=== PATIENT | female | born 1985 | race Hispanic/Latino ===

== ENCOUNTER 2024-04-15 07:06 | Emergency (ER) | payer SELFPAY ==
[2024-04-15 07:31] LABS: #Lymphocytes 2.2 thou/uL (1.20-3.40); #Monocytes 0.4 thou/uL (0.11-0.59); #Neutrophils 6.4 thou/uL (1.40-6.50); %Basophils 0.5 % (0.0-1.0); %Eosinophils 0.3 % (0.0-10.0); %Lymphocytes 24.2 % (21.0-51.0); %Monocytes 4.3 % (0.0-10.0); %Neutrophils 70.6 % (42.0-75.0); Hematocrit 40.2 % (36.0-47.0); Hemoglobin 13.5 g/dL (12.0-16.0); Mean Corpuscular HGB CONC 33.5 g/dL (32.0-36.0); Mean Corpuscular Hemoglobin 28.4 pg (27.0-31.0); Mean Corpuscular Volume 84.9 fl (78.0-98.0); Platelet Count 295 10x3/uL (130-400); RBC Distribution Width 11.6 % (11.5-14.5); Red Blood Cell (RBC) Count 4.74 mill/uL (4.20-5.40); White Blood Cell (WBC) Count 9.1 10x3/uL (4.8-10.8)
[2024-04-15 07:34] LABS: Bilirubin Small (Negative); Blood, Urine Large (Negative); Clarity Cloudy (Clear); Glucose, Urine (Dipstick) Negative (Negative); Ketone, Urine Trace mg/dL (Negative); Leukocyte Negative (Negative); Nitrite Negative (Negative); Protein, Urine (Dipstick) 100 mg/dL (Neg-Trace); Urobilinogen 0.2 mg/dL (Less than 2); pH, Urine 5.5 (5.0-9.0)
[2024-04-15] MEDS ORDERED: Sodium Chloride 0.9% 1,000 ML ONE (07:34)
[2024-04-15] MEDS ORDERED: Ondansetron PF 4 MG/2 ML Vial ONE (07:34)
[2024-04-15] MEDS ORDERED: Morphine 4 MG/ML VIAL ONE (07:34)
[2024-04-15] MEDS ORDERED: Ketorolac Tromethamine 30 MG (1 mL) VIAL ONE (07:36)
[2024-04-15 07:40] LABS: Specific Gravity, Urine 1.039 (1.002-1.036)
[2024-04-15 07:44] LABS: Bacteria/HPF Rare-Few HPF (None Seen); CAUTI Indications for Culture Pelvic or flank pain; RBC/HPF Greater than 50 HPF (0-3); Squamous Epithelial 0-3 HPF (0-3); WBC/HPF 0-3 HPF (0-3)
[2024-04-15 07:45] LABS: Mucous/LPF Few LPF (<2+)
[2024-04-15 07:46] LABS: Urine Culture Reflex No No
[2024-04-15 07:51] LABS: Pregnancy Test - Urine (BHCG) Negative (Negative); Pregu Control Bar Appear? YES (CONTROL BAR); Specific Gravity 1.039 (1.002-1.036)
[2024-04-15 07:52] LABS: ALT (SGPT) 28 U/L (8-55); AST (SGOT) 21 U/L (5-34); Albumin 3.9 g/dL (3.5-5.0); Alkaline Phosphatase 83 U/L (40-110); Anion Gap 16 mmol/L (10-20); BUN (Urea Nitrogen) 14 mg/dL (7.0-18.7); Bilirubin, Total 0.3 mg/dL (0.2-1.2); Calc. Creatinine Clearance 0 mL/min (70-130); Calcium 9.3 mg/dL (7.8-10.44); Carbon Dioxide 20 mmol/L (22-29); Chloride 108 mmol/L (98-107); Estimated GFR 102; Globulin 4.1 g/dL (2.4-3.5); Glucose 137 mg/dL (70-105); Lipase 16 U/L (8-78); Potassium 3.5 mmol/L (3.5-5.1); Pregu Control Background? CLEAR/WHITE (CLR/WHITE); Sodium 140 mmol/L (136-145)
== END 2024-04-15 08:45 | disposition home or self-care (01) ==
LOC: NAV ERS 07:06
DX: N13.2 Hydronephrosis with renal and ureteral calculous obstruction (principal)
CPT/HCPCS: 74176; 80053; 81001; 81025; 83690; 85025; 96361; 96374; 96375; J1885; J2272; J2405; J7030